=== PATIENT | male | born 1975 | race Caucasian/White ===

== ENCOUNTER 2023-07-03 11:56 | Inpatient (IN) ==
[2023-07-03] MEDS ORDERED: FAMOTIDINE 20 MG in SYRINGE 3 ML IV STA (13:02)
[2023-07-03] MEDS ORDERED: diphenhydrAMINE 50 MG/ML VIAL IV STA (13:02)
[2023-07-03] MEDS ORDERED: methylPREDNISolone 125 MG/2 ML VIAL IV STA (13:02)
[2023-07-03] MEDS ORDERED: FAMOTIDINE 20MG IV PUSH 20 MG/5 ML SYR IV STA (13:12)
[2023-07-03] MEDS ORDERED: SODIUM CHLORIDE 0.9% 1,000 ML IV ONE (13:15)
--- NOTE | 2023-07-03 13:15 | Emergency Department Note ---
Impression & Plan Facial swelling, Angio-edema ED Provider Note NAME: JASKARAN JOYA AGE: 47 SEX: M : 1975 ARRIVES VIA: Walk-In INFORMANT: Patient ED PROVIDER(S): Monster Landers DO CHIEF COMPLAINT: facial swelling HPI: Patient is a 47-year-old male who presents to the ER for swelling of his right face. He notes that it started this morning when he woke up. He denies any headache or change in vision. No chest pain or shortness of breath. Does admit to a cough and congestion. He notes this has been present for the past week. Was placed on Augmentin and has been taking that for the past several days. Was given a dose of oral steroids as well. Denies any dental pain. No trouble breathing or swallowing. He notes he has trouble breathing when he bends his neck forward for a protracted period of time. ADDITIONAL HISTORY OBTAINED: Per HPI Chronic Medical/Social Conditions Affecting Care: Per HPI PAST MEDICAL HISTORY:See Below PAST SURGICAL HISTORY:See Below FAMILY HISTORY:See Below SOCIAL HISTORY:See Below HOME MEDICATIONS:See Below ALLERGIES:See Below VITALS:See Below PHYSICAL EXAMINATION: GENERAL: Sitting up in bed, alert, well appearing, well nourished, no distress, non-toxic EYE EXAM: normal conjunctiva. PERRL and EOM's grossly intact. OROPHARYNX: no exudate, no erythema, significant swelling of the right lower and upper lip with watery edema no involvement of the soft or hard palate. No swelling below the tongue. No tongue swelling. NECK: supple, no nuchal rigidity, no adenopathy, non-tender LUNGS: Clear to auscultation. Normal chest wall mechanics HEART: no murmurs, S1 normal and S2 normal ABDOMEN: abdomen soft, non-tender, normo-active bowel sounds, no masses, no rebound or guarding. UPPER EXTREMITIES: upper extremities are grossly normal. LOWER EXTREMITIES: No pitting edema. NEURO EXAM: Normal sensorium, cranial nerves II-XII grossly intact, normal speech, no gross weakness of arms, no gross weakness of legs. MEDICAL DECISION MAKING: Patient is a 47-year-old male who presents ER for swelling of the right upper and right lower lip. He notes this started this morning when he woke up. Only new medication is Augmentin and he does not really take anything else. IV was established blood work is obtained. Labs show no significant leukocytosis or anemia. BMP along with LFTs bilirubin was unremarkable. Troponin was negative. Lipase negative. He was given Benadryl, Pepcid and steroids. The edema at the angle of the right mouth did improve but his left upper and lower lip started swelling. With this he has noticed trouble breathing or swallowing. Did discuss with him and his /family member who are present at bedside. With it switching to the left side to discuss with the hospitalist for observation overnight. Consults/Care Managements Discussions: Per MDM Triage Nursing notes reviewed. Limited review of prior medical records performed Vital Signs: reviewed and remarkable for HTN Differential diagnosis: Cellulitis, abscess, MRSA infection, DVT, necrotizing fasciitis, dermatitis, drug eruption, allergic reaction, as well as other pathologies. ER treatment provided: See below Diagnostics interpreted by me include EKG and cardiac monitoring as listed below: -Cardiac Monitoring: An order was placed for continuous cardiac monitoring. The monitor shows a rate of 80 with sinus rhythm. -ECG: none -Laboratory studies:Interpreted by me as stated above in MDM and shown below. Imaging studies: Xrays: As interpreted by me: Portable AP upright 1 view of the chest shows no focal infiltrate CTs show: CT soft tissue of the neck was unremarkable with the exception Procedures:none Critical Care: None Past Med/Surg History Medical History (Updated 07/03/23 @ 16:25 by Monster Landers DO) No pertinent past medical history Social History Smoking Status: Never smoker Preferred Language: Kazakh Feels Safe at Home: Yes Allergies Allergies Allergy/AdvReac Type Severity Reaction Status Date / Time No Known Allergies Allergy Mild Unverified 07/03/23 15:55 Home Meds Home Medications Medication Instructions Recorded Confirmed Super Beet 1 cap PO QAM 07/03/23 07/03/23 amoxicillin 875 mg-potassium 1 tab PO Q12H 07/03/23 07/03/23 clavulanate 125 mg tablet Results & Data (ED) Vital Signs Vital Signs - 24 hr 07/03/23 12:30 07/03/23 12:55 07/03/23 13:35 Temperature 36.8 C Temperature Source Temporal Artery Scan Pulse Rate 93 H 75 Pulse Rate [Right Finger] 77 Pulse Rhythm Regular Respiratory Rate 20 18 18 Respiratory Effort / Characteristics Non-Labored Spontaneous Respiratory Depth Normal Normal Respiratory Pattern Regular Blood Pressure 203/121 H Blood Pressure [Left Arm] Blood Pressure Mean 148 Blood Pressure Mean [Left Arm] Blood Pressure Position [Left Arm] Pulse Oximetry 95 96 99 Oxygen Delivery Method Room Air Room Air Room Air Sepsis New/Unexplained Change in Mental Status N/A Sepsis Action Taken by Nursing No Action Required 07/03/23 13:36 07/03/23 15:00 Temperature Temperature Source Pulse Rate Pulse Rate [Right Finger] 76 Pulse Rhythm Respiratory Rate 18 Respiratory Effort / Characteristics Non-Labored Respiratory Depth Normal Respiratory Pattern Blood Pressure Blood Pressure [Left Arm] 189/120 H 189/112 H Blood Pressure Mean Blood Pressure Mean [Left Arm] 143 137 Blood Pressure Position [Left Arm] Sitting Lying Pulse Oximetry 96 Oxygen Delivery Method Room Air Sepsis New/Unexplained Change in Mental Status Sepsis Action Taken by Nursing Laboratory Data 07/03/23 12:52 07/03/23 12:52 Lab Results 07/03/23 Range/Units 12:52 WBC 10.16 (4.8-10.8) K/ul RBC 5.37 (4.70-6.10) M/uL Hgb 15.4 (14.0-18.0) g/dl Hct 44.2 (42.0-52.0) % MCV 82.3 (80.0-100.0) fL MCH 28.7 (25.0-34.0) pg MCHC 34.8 (32.0-36.0) g/dL RDW Std Deviation 36.5 (36.4-46.3) fL RDW Coeff of Howard 12.1 (11.5-14.5) % Plt Count 298 (130-400) K/uL MPV 9.9 (9.4-12.4) fL Immature Gran % (Auto) 0.5 % Neut % (Auto) 78.3 % Lymph % (Auto) 11.3 % [place] % (Auto) 7.8 % Eos % (Auto) 1.8 % Baso % (Auto) 0.3 % Neut # (Auto) 7.96 H (1.40-6.50) K/uL Lymph # (Auto) 1.15 L (1.20-3.40) K/uL [place] # (Auto) 0.79 H (0.11-0.59) K/uL Eos # (Auto) 0.18 (0.00-0.50) K/uL Baso # (Auto) 0.03 (0.00-0.20) K/uL Immature Gran # (Auto) 0.05 (0.01-0.20) K/uL Sodium 137 (136-145) mmol/L Potassium 3.9 (3.5-5.1) mmol/L Chloride 101 (98-107) mmol/L Carbon Dioxide 28 (21-32) mmol/L Anion Gap 8 (3-11) BUN 19 (6-23) mg/dl Creatinine 1.01 (0.6-1.4) mg/dl Est Cr Clr Drug Dosing 97.3 ml/min Est GFR ( Amer) 102.9 ml/min Est GFR (Non-Af Amer) 88.8 ml/min BUN/Creatinine Ratio 18.8 (10-20) Glucose 97 (70-99(Fasting)) mg/dl Calcium 9.7 (8.6-10.3) mg/dl Total Bilirubin 0.8 (0.2-1.0) mg/dl AST 14 (13-39) U/L ALT 15 (7-52) U/L Alkaline Phosphatase 78 (34-104) U/L Troponin I High Sens 10.4 (0-20) pg/ml Total Protein 7.8 (6.0-8.3) gm/dl Albumin 4.3 (3.4-5.0) gm/dl Globulin 3.5 (2.5-4.0) gm/dl Albumin/Globulin Ratio 1.2 (0.9-2) Lipase 6 L (11-82) U/L Administered Medications Discontinued Medications Diphenhydramine HCl (Diphenhydramine 50 Mg/Ml Vial) 50 mg IV NOW STA Stop: 07/03/23 13:03 Last Admin: 07/03/23 13:22 Dose: 50 mg Documented By: KAIA Famotidine (Pepcid 20mg Iv Push) 20 mg in 5 mls @ 2.5 mls/min IV NOW STA Stop: 07/03/23 13:13 Last Admin: 07/03/23 13:22 Dose: 2.5 mls/min Documented By: KAIA Sodium Chloride (Nss) 1,000 mls @ 999 mls/hr IV .Q1H1M ONE Stop: 07/03/23 14:15 Last Infusion: 07/03/23 15:15 Dose: Infused Documented By: Admin: 07/03/23 13:23 Dose: 999 mls/hr Documented By: KAIA Ioversol (Optiray 320 500ml) 81 ml IV ONCE ONE Stop: 07/03/23 14:11 Last Admin: 07/03/23 14:10 Dose: 81 ml Documented By: FLY Methylprednisolone (Methylprednisolone 125 Mg/2 Ml Vial) 125 mg IV NOW STA Stop: 07/03/23 13:03 Last Admin: 07/03/23 13:22 Dose: 125 mg Documented By: KAIA Imaging Data Radiologist's Impression: Chest X-Ray 07/03/23 13:02 XR chest 1V portable CLINICAL HISTORY: Chest pain, nonspecific TECHNIQUE: Single frontal radiograph of the chest was obtained. Comparison: None available at the time of this dictation. FINDINGS: No lines and tubes are seen. The lungs are clear. No evidence of pleural effusion or pneumothorax. IMPRESSION: No acute chest disease. ACT 112: Negative or not required by law. Electronically signed by: Bill Miller M.D. 07/03/2023 1:24 PM Soft Tissue Neck CT 07/03/23 13:15 CT soft tissue neck w con HISTORY: 47 years-old Male swelling lips and pain on right neck acute pain and swelling of the neck and face COMPARISON: None TECHNIQUE: Multiple axial CT images of the soft tissues of the neck were obtained following intravenous ministration of 81 mL Optiray 320. A dose lowering technique was used consistent with the principals of ALARA. FINDINGS: The imaged intracranial structures demonstrate no acute abnormality. Unremarkable soft tissues and orbits. Patent airway with tonsillar calcifications. Vallecula and piriform sinuses are within normal limits. Unremarkable glottis and subglottic airway. Streak artifact from dental amalgam and hardware. No peritonsillar or prevertebral fluid collections. Mild nonspecific wall thickening of the upper thoracic esophagus. Unremarkable parotid, thyroid and submandibular glands. Lung apices are clear. There is no pneumothorax. No lymphadenopathy. Moderate subcutaneous edema of the maxillary and mandibular lips and right mandibular tissues. No focal fluid collections identified. Mastoid air cells and middle ear cavities are clear. The paranasal sinuses are generally clear. No significant odontogenic disease identified. Degenerative changes of the cervical spine. IMPRESSION: 1. Nonspecific moderate soft tissue swelling. No discrete fluid collection identified. 2. No acute osseous abnormality. 3. No lymphadenopathy. ACT 112: Negative or not required by law. The above report was generated using voice recognition software. It may contain grammatical, syntax or spelling errors. Electronically signed by: Handy Nichols M.D. 07/03/2023 3:25 PM Discharge Plan Visit Data Chief Complaint: Facial Injury/Pain Stated Complaint: SWOLLEN LIP ED Provider: Monster Landers Discharge Problem: Facial swelling, Angio-edema Forms Stand Alone Forms: [employer] [facility] [employer] Prescriptions Prescriptions: No Action amoxicillin-pot clavulanate 875-125 mg tablet 1 tab PO Q12H Rx Instructions: Start Date 07/01/23 - End Date 07/08/23. Pt has taken 5 doses. Super Beet 1 cap PO QAM Referrals Referrals: PCP,NO [Primary Care Provider] - Discharge Problem: Angio-edema Qualifiers: Encounter type: initial encounter Qualified Code(s): T78.3XXA - Angioneurotic edema, initial encounter
[2023-07-03 13:25] LABS: Basophils # (auto) 0.03 K/uL (0.00-0.20); Basophils % (auto) 0.3 %; Eosinophils # (auto) 0.18 K/uL (0.00-0.50); Eosinophils % (auto) 1.8 %; Hematocrit (blood only) 44.2 % (42.0-52.0); Hemoglobin 15.4 g/dl (14.0-18.0); Immature Granulocytes # (auto) 0.05 K/uL (0.01-0.20); Immature Granulocytes % (auto) 0.5 %; Lymphocytes # (auto) 1.15 K/uL (1.20-3.40); Lymphocytes % (auto) 11.3 %; Mean Corpuscular Hemoglobin 28.7 pg (25.0-34.0); Mean Corpuscular Hgb Conc 34.8 g/dL (32.0-36.0); Mean Corpuscular Volume 82.3 fL (80.0-100.0); Mean Platelet Volume 9.9 fL (9.4-12.4); Monocytes # (auto) 0.79 K/uL (0.11-0.59); Monocytes % (auto) 7.8 %; Neutrophils # (auto) 7.96 K/uL (1.40-6.50); Neutrophils % (auto) 78.3 %; Platelet Count 298 K/uL (130-400); RDW Coefficient of Variation 12.1 % (11.5-14.5); RDW Standard Deviation 36.5 fL (36.4-46.3); Red Blood Count 5.37 M/uL (4.70-6.10); White Blood Count 10.16 K/ul (4.8-10.8)
--- NOTE | 2023-07-03 13:26 | XRay Report ---
XR chest 1V portable CLINICAL HISTORY: Chest pain, nonspecific TECHNIQUE: Single frontal radiograph of the chest was obtained. Comparison: None available at the time of this dictation. FINDINGS: No lines and tubes are seen. The lungs are clear. No evidence of pleural effusion or pneumothorax. IMPRESSION: No acute chest disease. ACT 112: Negative or not required by law. Electronically signed by: Bill Miller M.D. 07/03/2023 1:24 PM
[2023-07-03 13:40] LABS: Albumin Globulin Ratio 1.2 (0.9-2); Albumin Level 4.3 gm/dl (3.4-5.0); BUN Creatinine Ratio 18.8 (10-20); Bilirubin,Total 0.8 mg/dl (0.2-1.0); Calcium 9.7 mg/dl (8.6-10.3); Creatinine Clr Calc Pharmacy 97.3 ml/min; Est GFR (African American) 102.9 ml/min; Est GFR (Non-African American) 88.8 ml/min; Globulin 3.5 gm/dl (2.5-4.0); Potassium 3.9 mmol/L (3.5-5.1); Total Protein 7.8 gm/dl (6.0-8.3)
[2023-07-03 13:46] LABS: Troponin I High Sensitivity 10.4 pg/ml (0-20)
[2023-07-03] MEDS ORDERED: OPTIRAY 320 500ml IV ONE (14:10)
--- NOTE | 2023-07-03 15:26 | CT Scan Report ---
CT soft tissue neck w con HISTORY: 47 years-old Male swelling lips and pain on right neck acute pain and swelling of the neck and face COMPARISON: None TECHNIQUE: Multiple axial CT images of the soft tissues of the neck were obtained following intraveno us ministration of 81 mL Optiray 320. A dose lowering technique was used consistent with the principa ls of MADELYN. FINDINGS: The imaged intracranial structures demonstrate no acute abnormality. Unremarkable soft tissues and or bits. Patent airway with tonsillar calcifications. Vallecula and piriform sinuses are within normal l imits. Unremarkable glottis and subglottic airway. Streak artifact from dental amalgam and hardware. No peritonsillar or prevertebral fluid collections. Mild nonspecific wall thickening of the upper tho racic esophagus. Unremarkable parotid, thyroid and submandibular glands. Lung apices are clear. There is no pneumothorax. No lymphadenopathy. Moderate subcutaneous edema of t he maxillary and mandibular lips and right mandibular tissues. No focal fluid collections identified. Mastoid air cells and middle ear cavities are clear. The paranasal sinuses are generally clear. No s ignificant odontogenic disease identified. Degenerative changes of the cervical spine. IMPRESSION: 1. Nonspecific moderate soft tissue swelling. No discrete fluid collection identified. 2. No acute osseous abnormality. 3. No lymphadenopathy. ACT 112: Negative or not required by law. The above report was generated using voice recognition software. It may contain grammatical, syntax o r spelling errors. Electronically signed by: Handy Nichols M.D. 07/03/2023 3:25 PM
--- NOTE | 2023-07-03 16:16 | Electrocardiogram Report ---
Test Reason : Blood Pressure : / mmHG Vent. Rate : 069 BPM Atrial Rate : 069 BPM P-R Int : 178 ms QRS Dur : 096 ms QT Int : 402 ms P-R-T Axes : 063 058 045 degrees QTc Int : 430 ms Normal sinus rhythm Minimal voltage criteria for LVH, may be normal variant Borderline ECG When compared with ECG of 16-APR-2021 11:35, No significant change was found Confirmed by Ralph Banegas ([id number]) on 07/03/2023 4:16:27 PM Referred By: REFERRED SELF Confirmed By:Thaddeus Banegas
[2023-07-03] MEDS ORDERED: hydrALAZINE HCL 20 MG/ML VIAL IV STA ×2 (16:20→22:41)
--- NOTE | 2023-07-03 16:50 | History & Physical Report ---
Date of Service July 03, 2023 Assessment & Plan (1) Angio-edema: Plan: This is a 47 y/o male with no significant PMH who presents to the ED today with right facial swelling that started this morning. He is currently on Augmentin for chest congestion, which he started two days ago after being seen at [facility]. He reports taking amoxicillin/pencillins previously without issue. Work-up in the ED appears most consistent with angioedema although source is u ncertain. Per pt, respiratory symptoms have not improved with the Augmentin. Only mild improvement in the right facial edema after Solu- Medrol/Benadryl/famotidine given in the ED and lip swelling now present bilaterally so pt referred for admission and further management. Pt's BP in the ED also markedly elevated. Review of outpatient records shows ongoing elevated BP for which pt is not currently on any anti-hypertensives. - Admit to med telemetry - IV hydralazine 10 mg now and reassess. Start losartan 50 mg daily - first dose now. Will need to f/u with PCP for management of hypertension outpatient - suspect pt will need more than one agent. - Prednisone 40 mg daily starting tomorrow - IV Benadryl prn for worsening symptoms overnight - Cetirizine 10 mg po BID - Recommend pt avoid penicillins/amoxicillin until he can be evaluated by travel accommodation inspector as outpatient - Check tryptase, C4 though hereditary angioedema seems unlikely - Add levofloxacin for lower respiratory infection. Check respiratory panel. (2) Lower respiratory infection: (3) Hypertensive urgency: Plan Pt seen and reviewed with collaborating physician, Dr. Allison. Plan of care discussed and as outlined above. Code Status: Full code DVT prophylaxis: Kvng Fan PA-C History of Present Illness Chief Complaint: facial swelling Primary Care Provider: NO PCP This is a 47 y/o male with no significant PMH who presents to the ED today with right facial swelling that started this morning. Pt reports that when he woke up this morning he noted the right side of his upper lip and the area immediately surrounding it were swollen. The swelling continued to worsen until it involved most of the right face so he came to the ED for evaluation. Pt notes recent chest cold for which he was seen at [facility] two days ago and started on Augment, given a dose of liquid steroid orally. His cough and chest congestion have not significantly improved or worsened since starting those medications. His throat has been sore due to coughing - he denies dysphagia or throat itching today. In the ED, he was given Solu-Medrol, famotidine, and Benadryl. He noted some mild improvement in the right facial swelling but now left side of lips are swollen so he was referred for admission. He denies prior similar reactions previously. He thinks that he has taken amoxicillin/penicillin without issues previously. His BP in the ED was markedly elevated - on review of outpatient PCP records, his BPs have been elevated since at least 2019. Pt has been taking a supplement to help treat this but has not taken anti-hypertensive medications. Allergies Allergy/AdvReac Type Severity Reaction Status Date / Time amoxicillin Allergy Severe angioedema Verified 07/03/23 17:16 Home Medications Medication Instructions Recorded Confirmed Type Super Beet 1 cap PO QAM 07/03/23 07/03/23 History amoxicillin 875 mg-potassium 1 tab PO Q12H 07/03/23 07/03/23 History clavulanate 125 mg tablet Past Med/Surg History Medical History (Updated 07/03/23 @ 20:42 by Elle Fan PA-C) No pertinent past medical history Surgical History (Updated 07/03/23 @ 16:55 by Elle Fan PA-C) No pertinent past surgical history Social History (Updated 07/03/23 @ 16:56 by Elle Fan PA-C) Smoking Status: Never smoker Hx Alcohol Use: Yes Alcohol Intake Frequency: Monthly or Less Preferred Language: Kiswahili Current Living Situation: Family current occupational status: employed 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 How many Children do You have: 2 Feels Safe at Home: Yes Review of Systems Review of Systems: All systems reviewed & are unremarkable except as noted in HPI & below Constitutional: + fever, + chills and + fatigue Eyes: no diplopia Ear, Nose, Mouth, Throat: as per Subjective / HPI Respiratory: as per Subjective / HPI Cardiovascular: no chest pain, no palpitations and no syncope Gastrointestinal: no abdominal pain, no nausea and no vomiting Integumentary: no yellowing of the skin Neurologic: no generalized weakness, no headache(s) and no confusion Physical Exam Physical Exam: General: awake, alert, NAD Eyes: no scleral icterus Mouth: multiple dental caries but no gingival erythema or purulence, no tongue swelling, +marked edema of upper and lower lips bilaterally Face: +right facial edema but no overlying erythema or fluctuance Neck: trachea midline Heart: RRR, no M/G/R Lungs: bilateral coarse BS with expiratory rhonchi at bases Abdomen: soft, NT, +BS Extremities: no pedal edema Neurologic: moving all extremities, no dysarthria, no confusion Results & Data Results & Data Vital Signs (Past 12 Hours) Vital Signs Temp Pulse Pulse Resp BP BP Pulse Ox 07/03/23 16:31 99 H 07/03/23 15:00 76 18 189/112 H 96 07/03/23 13:36 189/120 H 07/03/23 13:35 75 18 99 07/03/23 12:55 77 18 96 07/03/23 12:30 36.8 C 93 H 20 203/121 H 95 O2 Del Method 07/03/23 16:31 07/03/23 15:00 Room Air 07/03/23 13:36 07/03/23 13:35 Room Air 07/03/23 12:55 Room Air 07/03/23 12:30 Room Air Laboratory Results Laboratory Results - last 24 hr 07/03/23 07/03/23 12:52 17:46 WBC 10.16 RBC 5.37 Hgb 15.4 Hct 44.2 MCV 82.3 MCH 28.7 MCHC 34.8 RDW Std Deviation 36.5 RDW Coeff of Howard 12.1 Plt Count 298 MPV 9.9 Immature Gran % (Auto) 0.5 Neut % (Auto) 78.3 Lymph % (Auto) 11.3 Grand % (Auto) 7.8 Eos % (Auto) 1.8 Baso % (Auto) 0.3 Neut # (Auto) 7.96 H Lymph # (Auto) 1.15 L Grand # (Auto) 0.79 H Eos # (Auto) 0.18 Baso # (Auto) 0.03 Immature Gran # (Auto) 0.05 Sodium 137 Potassium 3.9 Chloride 101 Carbon Dioxide 28 Anion Gap 8 BUN 19 Creatinine 1.01 Est Cr Clr Drug Dosing 97.3 Est GFR ( Amer) 102.9 Est GFR (Non-Af Amer) 88.8 BUN/Creatinine Ratio 18.8 Glucose 97 Calcium 9.7 Total Bilirubin 0.8 AST 14 ALT 15 Alkaline Phosphatase 78 Troponin I High Sens 10.4 Total Protein 7.8 Albumin 4.3 Globulin 3.5 Albumin/Globulin Ratio 1.2 Lipase 6 L Tryptase Pending Complement C4 Pending Diagnostic Findings Chest X-Ray 07/03/23 13:02 XR chest 1V portable CLINICAL HISTORY: Chest pain, nonspecific TECHNIQUE: Single frontal radiograph of the chest was obtained. Comparison: None available at the time of this dictation. FINDINGS: No lines and tubes are seen. The lungs are clear. No evidence of pleural effusion or pneumothorax. IMPRESSION: No acute chest disease. ACT 112: Negative or not required by law. Electronically signed by: Bill Miller M.D. 07/03/2023 1:24 PM Soft Tissue Neck CT 07/03/23 13:15 CT soft tissue neck w con HISTORY: 47 years-old Male swelling lips and pain on right neck acute pain and swelling of the neck and face COMPARISON: None TECHNIQUE: Multiple axial CT images of the soft tissues of the neck were obtain ed following intravenous ministration of 81 mL Optiray 320. A dose lowering technique was used consistent with the principals of ALARA. FINDINGS: The imaged intracranial structures demonstrate no acute abnormality. Unremarkable soft tissues and orbits. Patent airway with tonsillar calcifications. Vallecula and piriform sinuses are within normal limits. Unremarkable glottis and subglottic airway. Streak artifact from dental amalgam and hardware. No peritonsillar or prevertebral fluid collections. Mild nonspecific wall thickening of the upper thoracic esophagus. Unremarkable parotid, thyroid and submandibular glands. Lung apices are clear. There is no pneumothorax. No lymphadenopathy. Moderate subcutaneous edema of the maxillary and mandibular lips and right mandibular tissues. No focal fluid collections identified. Mastoid air cells and middle ear cavities are clear. The paranasal sinuses are generally clear. No significant odontogenic disease identified. Degenerative changes of the cervical spine. IMPRESSION: 1. Nonspecific moderate soft tissue swelling. No discrete fluid collection identified. 2. No acute osseous abnormality. 3. No lymphadenopathy. ACT 112: Negative or not required by law. The above report was generated using voice recognition software. It may contain grammatical, syntax or spelling errors. Electronically signed by: Handy Nichols M.D. 07/03/2023 3:25 PM Medications Administered Discontinued Medications Diphenhydramine HCl (Diphenhydramine 50 Mg/Ml Vial) 50 mg IV NOW STA Stop: 07/03/23 13:03 Last Admin: 07/03/23 13:22 Dose: 50 mg Documented By: KAIA Famotidine (Pepcid 20mg Iv Push) 20 mg in 5 mls @ 2.5 mls/min IV NOW STA Stop: 07/03/23 13:13 Last Admin: 07/03/23 13:22 Dose: 2.5 mls/min Documented By: KAIA Sodium Chloride (Nss) 1,000 mls @ 999 mls/hr IV .Q1H1M ONE Stop: 07/03/23 14:15 Last Infusion: 07/03/23 15:15 Dose: Infused Documented By: Admin: 07/03/23 13:23 Dose: 999 mls/hr Documented By: KAIA Ioversol (Optiray 320 500ml) 81 ml IV ONCE ONE Stop: 07/03/23 14:11 Last Admin: 07/03/23 14:10 Dose: 81 ml Documented By: FLY Methylprednisolone (Methylprednisolone 125 Mg/2 Ml Vial) 125 mg IV NOW STA Stop: 07/03/23 13:03 Last Admin: 07/03/23 13:22 Dose: 125 mg Documented By: KAIA Supervising Physician Co-Signing Physician Notes I have seen and examined the patient and have discussed the case with the provider above. I agree with the assessment and plan as stated with the following exceptions. 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 Swelling is located in his lip but does not include his tongue. It has spread over to the left side somewhat. He was recently put on Augmentin for respiratory symptoms that he reports have not improved. He has no wheezing on exam but does have coarse rhonchi especially at the left base. He is still having a productive cough and is mildly diaphoretic on exam today. Today he has no dysphagia or throat itching. His initial symptoms began approximately 1 week ago and he was seen at urgent care. He reports that prior to taking Augmentin he did bite his tongue and had some tongue swelling which has resolved. He has no known allergy to penicillin. He takes super beet supplements for blood pressure control and has taken this for the last year. His blood pressure is critically elevated today in the ER up to 203/121. He reports this blood pressure has been elevated for years and he has a family history of this. Labs and imaging reviewed and unremarkable. No leukocytosis or eosinophilia. Chem panel and troponin are normal. CXR clear. 1. angioedema poss 2/2 amoxicillin use 2. hypertensive urgency with long-standing uncontrolled HTN 3. possible pneumonia We discussed in detail the importance of chronic management of blood pressure and the adverse effects of not controlling blood pressure well. We discussed what his goal blood pressure is and how to reduce salt intake to achieve this goal naturally. He was placed on losartan 50 daily and acutely given hydralazine IV for blood pressure reduction. He does report significant anxiety with staying in the hospital and reports whitecoat syndrome. Ativan was also ordered as needed. Given he has adventitial sounds on exam along with intermittent diaphoresis, productive cough, intermittent fevers and chills, it is possible that he has pneumonia despite a clear chest x-ray. He is a non- smoker. Will start him on a course of Levaquin. Continue prednisone daily along with cetirizine daily for angioedema. Tryptase and C4 level was drawn. Patient was counseled on the side effects of fluoroquinolones and steroids together including tendinitis and tendon rupture. He verbalized understanding that if he were to feel tendon pain he will stop working rest and seek medical attention to potentially come off these medications. QTc is 430 on EKG today. Outpatient allergy follow-up recommended. He was given Dr. Wiley's name. Close follow-up with primary care doctor was strongly recommended for blood pressure medication titration as well as follow-up of pulmonary symptoms. Disposition to telemetry with ongoing hypertensive urgency and angioedema that has not yet resolved. Avoid all penicillin products at this time until he is seen by an travel accommodation inspector. DO Keegan (1) Angio-edema Encounter type: initial encounter Qualified Code(s): T78.3XXA - Angioneurotic edema, initial encounter
[2023-07-03] MEDS ORDERED: LORazepam 0.5 MG TAB PO PRN (17:06)
[2023-07-03] MEDS ORDERED: diphenhydrAMINE 50 MG/ML VIAL IV PRN (17:13)
[2023-07-03] MEDS: levoFLOXacin/D5W 750 MG/150 ML BAG IV SCH (17:21)
[2023-07-03] MEDS: LOSARTAN POTASSIUM 50 MG TAB PO SCH (17:22)
--- OUTSIDE RECORDS SUMMARY | 2023-07-03 18:52 | External Medical Summary | Summary of Care ---
Author Name Unknown Organization [facility] Address [address] [place] [address] Phone [phone] Care Team Providers Care Technical Administrative Assistant Name Role Phone Piper Cevallos DO Primary Care Provider Reason for Visit * Reason Comments NEW PATIENT Encounter Details Date Type Department Care Team Description 03/18/2023 Office Visit Family Practice Carolynn Krishnan [place] [address] [facility] [place] [place] [id number] Arias Ricci III, MD [address] [facility] [place] [id number] Bilateral impacted cerumen*; Elevated blood pressure reading Allergies No known active allergiesdocumented as of this encounter (statuses as of 03/21/2023) Medications Medication Sig Dispensed Refills Start Date End Date Status Hydrocortisone-Acetic Acid 1-2 % Otic Solution (Vosol HC) Instill 4 Drops into both ears in the morning and 4 Drops at noon and 4 Drops in the evening and 4 Drops before bedtime. Do all this for 7 days. 5 mL 1 03/18/2023 03/25/2023 Active documented as of this encounter (statuses as of 03/21/2023) Active Problems No known active problems documented as of this encounter (statuses as of 03/21/2023) Resolved Problems Problem Noted Date Resolved Date Varicella 08/02/2018 documented as of this encounter (statuses as of 03/21/2023) Immunizations Name Administration Dates Next Due TDAP (age 11 and older)(Adacel) 11/04/2011 documented as of this encounter Social History Tobacco Use Types Packs/Day Years Used Date Smoking Tobacco: Never Smokeless Tobacco: Never Tobacco Cessation:Counseling Given: Not Answered Alcohol Use Standard Drinks/Week Comments No 0 (1 standard drink = 0.6 oz pur e alcohol) social Sex Assigned at Date Recorded Not on file Job Start Date Occupation Industry Not on file Not on file Not on file documented as of this encounter Last Filed Vital Signs Vital Sign Reading Time Taken Comments Blood Pressure 174/106 03/18/2023 1:58 PM EDT Pulse 83 03/18/2023 1:58 PM EDT Temperature 37.2 C (99 F) 03/18/2023 1:58 PM EDT Respiratory Rate 16 03/18/2023 1:58 PM EDT Oxygen Saturation - - Inhaled Oxygen Concentration - - Weight 79.4 kg (175 lb) 03/18/2023 1:58 PM EDT Height 180.3 cm (5' 11") 03/18/2023 1:58 PM EDT Body Mass Index 24.41 03/18/2023 1:58 PM EDT documented in this encounter Progress Notes * Arias Ricci III, MD - 03/18/2023 2:28 PM EDT Subjective: Dale Cueva is a 47 year old male. Chief Complaint Patient presents with NEW PATIENT HPI: Both ears feel plugged worse on the left than the right decreased hearing on the left reportedly blood pressure is always elevated in the doctor's office was trying a red beet pill with some benefit is not interested in taking prescriptions PMH: Patient Active Problem List Diagnosis Code (none) - all problems resolved or deleted No current outpatient medications on file. No current facility-administered medications for this visit. Review of patient's allergies indicates: No Known Allergies Past Medical History: Diagnosis Date Varicella Past Surgical History: Procedure Laterality Date DENTAL SURGERY PROCEDURE NEC 1999 Objective: The patient is a 47 year old male BP 174/106 | Pulse 83 | Temp 37.2 C (99 F) | Resp 16 | Ht 1.803 m (5' 11") | Wt 79.4 kg (175 lb) | BMI 24.41 kg/m | BSA 1.99 m Ears: External ears normal, some cerumen right able to visualize part of drum left completely blocked ASSESSMENT: H61.23 Bilateral impacted cerumen (primary encounter diagnosis) R03.0 Elevated blood pressure reading PLAN: Dash diet case 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 Arias Ricci III, MD * Nisa Escoto RN - 03/18/2023 1:55 PM EDT Both ears are plugged. documented in this encounter Plan of Treatment Health Maintenance Due Date Last Done Comments Hepatitis B (1 of 3 - 3-dose series) 1976 COVID-19 Vaccine (#1) 03/17/1977 HIV Screening 09/15/1991 Hepatitis C Screening 1994 Depression Screening 08/02/2019 08/02/2018 Cologuard 2021 Colonoscopy 2021 Colorectal Cancer Screening 2021 Fecal Occult Blood Test 2021 Sigmoidoscopy 2021 DTaP,Tdap,and Td Vaccines (2 - Td or Tdap) 11/03/2021 11/04/2011 Influenza Vaccine (FLU shot) (#1) 2023 Lipid Panel 08/02/2023 08/02/2018, 12/04/2011 (Discussed) GARDASIL-HPV IMMUNIZATION SERIES Aged Out No longer eligible b ased on patient's age to complete this topic MENINGOCOCCAL (MENACTRA/MENVEO) Aged Out No longer eligible b ased on patient's age to complete this topic Pneumococcal Vaccine: Pediatrics (0 to 5 Years) and At-Risk Patients (6 to 64 Years) Aged Out No longer eligible b ased on patient's age to complete this topic documented as of this encounter Medical Devices Not on filedocumented as of this encounter Visit Diagnoses Diagnosis Bilateral impacted cerumen- Primary Impacted cerumen Elevated blood pressure reading Elevated blood pressure reading without diagnosis of hypertension documented in this encounter Care Teams Technical Administrative Assistant Relationship Specialty Start Date End Date Piper Cevallos DO PCP - General Family Medicine 04/07/11 documented as of this encounter
[2023-07-03] MEDS: guaiFENesin 600 MG TABCR PO SCH (21:45)
[2023-07-03] MEDS: CETIRIZINE HCL 10 MG TABLET PO SCH (21:45)
[2023-07-03 23:29] LABS: Influenza A virus by PCR Negative (Neg); Influenza B virus by PCR Negative (Neg); RSV by PCR Negative (Neg); SARS CoV2 RNA(COVID-19) Ceph NEGATIVE (Negative)
[2023-07-04] MEDS ORDERED: cloNIDine HCL 0.1 MG TAB PO ONE (00:53)
[2023-07-04] MEDS: CETIRIZINE HCL 10 MG TABLET PO SCH ×2 (08:08→21:15)
[2023-07-04] MEDS: LOSARTAN POTASSIUM 50 MG TAB PO SCH (08:08)
[2023-07-04] MEDS: predniSONE 20 MG TAB PO SCH (08:08)
[2023-07-04] MEDS: guaiFENesin 600 MG TABCR PO SCH ×2 (08:12→21:15)
--- NOTE | 2023-07-04 14:57 | Hospitalist Progress Note ---
Date of Service July 04, 2023 Assessment & Plan (1) Angio-edema: Plan 47-year-old male with no significant PMH presented to the ED with right facial swelling that started on the morning of arrival which was gradually progressing. He was recently started on Augmentin for chest congestion at urgent care. He reported taking 3 doses of Augmentin INTERNAL CARVER. He also reports taking amoxicillin/penicillins in the past with no issues. He was noted to be in angioedema, progressing at presentation. Patient was given Solu- Medrol/Benadryl/famotidine in the ED, swelling continued to involve his lips while in ED and hence was admitted for further observation and management. Patient was also noted to have high blood pressure in the ED. He is being managed for the following: Angioedema possibly secondary to amoxicillin use Patient came in with right facial swelling with recent history of amoxicillin use [see above] Patient was given Solu-Medrol/Benadryl/famotidine in the ED , the swelling continued to progress to involve his lips. At bedside exam today, the swelling seems decreasing per patient. Patient denies any wheezing or chest pain or abdominal pain or shortness of breath. Will continue with cetirizine and prednisone at the time. Continue to observe. Tryptase and C4 level sent. Patient has been advised to avoid penicillin/amoxicillin until he can be evaluated by sports reporter as an outpatient. Patient is aware that he needs to see sports reporter upon discharge as soon as possible. Will likely discharge patient with EpiPen. Possible pneumonia: Patient was taking amoxicillin for chest congestion as an outpatient, will put him on levofloxacin and complete the course. Hypertensive urgency: Patient blood pressure elevated at presentation. Was started on losartan, given angioedema presentation, will avoid losartan for the time being. Will put him on amlodipine. Will not restart multiple medication at the same time. Will monitor for any allergic reaction from a new medication for few weeks before adding another medication. Patient has been explained such. Patient advised to monitor blood pressure twice a day, maintain a log, follow-up with PCP for ongoing/further management of his blood pressure. He is aware that he needs addition of further BP meds in near future. He is aware to f/u w/ pcp regarding this. DVT prophylaxis: SCDs Full code Admission and Anticipated Discharge Date Admission Date: July 03, 2023 Subjective Patient was seen and examined at bedside. Patient was lying in bed, lips and facial swelling noted. Patient on room air, resting comfortably. Patient denies any abdominal pain or wheezing, patient denies shortness of breath. Patient's at bedside, who reports improvement in his facial swelling. Patient denies any trouble swallowing food. Physical Exam 2 Physical Exam: GENERAL: Alert and oriented x3. NAD, on RA. facial swelling/lips swelling noted. HEENT: No pallor, no icterus. Pupils equal, round and reactive to light. Oral mucosa moist. NECK: No JVD, no neck masses. HEART: S1 and S2 heard. Regular rate and rhythm. No murmur, no gallop. RESPIRATORY SYSTEM: Normal AP diameter. No accessory muscle use. No wheezing, no crackles. ABDOMEN: Soft, bowel sounds present, nontender, no distention. CENTRAL NERVOUS SYSTEM: No facial droop. Speech is clear. Obeys simple commands. Moves extremities. EXTREMITIES: No edema, no erythema seen. Results & Data Results & Data Vital Signs (Past 12 Hours) Vital Signs Temp Pulse Pulse Resp BP Pulse Ox Pulse Ox 07/04/23 12:00 36.7 C 69 14 159/90 H 95 07/04/23 08:00 95 07/04/23 07:58 36.8 C 70 16 153/89 H 95 07/04/23 07:39 68 07/04/23 04:24 62 16 149/86 H 95 O2 Del Method O2 Del Method 07/04/23 12:00 Room Air 07/04/23 08:00 Room Air 07/04/23 07:58 Room Air 07/04/23 07:39 07/04/23 04:24 Room Air (1) Angio-edema Encounter type: initial encounter Qualified Code(s): T78.3XXA - Angioneurotic edema, initial encounter
[2023-07-04] MEDS: levoFLOXacin/D5W 750 MG/150 ML BAG IV SCH (17:08)
[2023-07-05 08:02] LABS: Hematocrit (blood only) 44.6 % (42.0-52.0); Hemoglobin 15.4 g/dl (14.0-18.0); Mean Corpuscular Hemoglobin 28.7 pg (25.0-34.0); Mean Corpuscular Hgb Conc 34.5 g/dL (32.0-36.0); Mean Corpuscular Volume 83.2 fL (80.0-100.0); Mean Platelet Volume 9.8 fL (9.4-12.4); Platelet Count 331 K/uL (130-400); RDW Coefficient of Variation 12.2 % (11.5-14.5); RDW Standard Deviation 37.4 fL (36.4-46.3); Red Blood Count 5.36 M/uL (4.70-6.10)
[2023-07-05 08:06] LABS: BUN Creatinine Ratio 25.2 (10-20); Calcium 8.9 mg/dl (8.6-10.3); Creatinine Clr Calc Pharmacy 91.9 ml/min; Est GFR (Non-African American) 82.8 ml/min; Magnesium 2.3 mg/dl (1.7-2.4); Phosphorus 2.9 mg/dl (2.5-4.9); Potassium 3.5 mmol/L (3.5-5.1)
[2023-07-05] MEDS: guaiFENesin 600 MG TABCR PO SCH (08:49)
[2023-07-05] MEDS: CETIRIZINE HCL 10 MG TABLET PO SCH (08:49)
[2023-07-05] MEDS: predniSONE 20 MG TAB PO SCH ×2 (08:50→11:49)
[2023-07-05] MEDS ORDERED: amLODIPine BESYLATE 5 MG TAB PO SCH (09:00)
--- NOTE | 2023-07-05 12:24 | Discharge Summary ---
Date of Service July 05, 2023 Admission HPI Per Admitting Provider This is a 47 y/o male with no significant PMH who presents to the ED today with right facial swelling that started this morning. Pt reports that when he woke up this morning he noted the right side of his upper lip and the area immediately surrounding it were swollen. The swelling continued to worsen until it involved most of the right face so he came to the ED for evaluation. Pt notes recent chest cold for which he was seen at [facility] two days ago and started on Augment, given a dose of liquid steroid orally. His cough and chest congestion have not significantly improved or worsened since starting those medications. His throat has been sore due to coughing - he denies dysphagia or throat itching today. In the ED, he was given Solu-Medrol, famotidine, and Benadryl. He noted some mild improvement in the right facial swelling but now left side of lips are swollen so he was referred for admission. He denies prior similar reactions previously. He thinks that he has taken amoxicillin/penicillin without issues previously. His BP in the ED was markedly elevated - on review of outpatient PCP records, his BPs have been elevated since at least 2019. Pt has been taking a supplement to help treat this but has not taken anti-hypertensive medications. Principal Diagnosis Angioedema possibly secondary to amoxicillin use Possible pneumonia Hypertensive urgency Discharge Exam GENERAL: Alert and oriented x3. NAD, on RA. facial swelling/lips swelling noted. HEENT: No pallor, no icterus. Pupils equal, round and reactive to light. Oral mucosa moist. NECK: No JVD, no neck masses. HEART: S1 and S2 heard. Regular rate and rhythm. No murmur, no gallop. RESPIRATORY SYSTEM: Normal AP diameter. No accessory muscle use. No wheezing, no crackles. ABDOMEN: Soft, bowel sounds present, nontender, no distention. CENTRAL NERVOUS SYSTEM: No facial droop. Speech is clear. Obeys simple commands. Moves extremities. EXTREMITIES: No edema, no erythema seen. Discharge Data Allergies Allergy/AdvReac Type Severity Reaction Status Date / Time amoxicillin Allergy Severe angioedema Verified 07/03/23 17:16 Consultations 07/03/23 15:42 ED Decision to Admit Stat Ordered Studies 07/03/23 13:15 CT soft tissue neck w con Stat Hospital Course (1) Angio-edema: Plan 47-year-old male with no significant PMH presented to the ED with right facial swelling that started on the morning of arrival which was gradually progressing. He was recently started on Augmentin for chest congestion at urgent care. He reported taking 3 doses of Augmentin LACQUER COATER. He also reports taking amoxicillin/penicillins in the past with no issues. He was noted to be in angioedema, progressing at presentation. Patient was given Solu- Medrol/Benadryl/famotidine in the ED, swelling continued to involve his lips while in ED and hence was admitted for further observation and management. Patient was also noted to have high blood pressure in the ED. He was managed for the following: Angioedema possibly secondary to amoxicillin use Patient came in with right facial swelling with recent history of amoxicillin use [see above] Patient was given Solu-Medrol/Benadryl/famotidine in the ED , the swelling con tinued to progress to involve his lips which is concerning as it might have involved his airway if not for timely medications. At bedside exam today, the swelling seems almost back to normal Patient denies any wheezing or chest pain or abdominal pain or shortness of breath. Will continue with famotidine, cetirizine and prednisone at the time upon discharge for few days. Tryptase and C4 level sent. Patient has been advised to avoid penicillin/amoxicillin until he can be evaluated by powerhouse engineer as an outpatient. Patient is aware that he needs to see powerhouse engineer upon discharge as soon as possible. Will likely discharge patient with EpiPen. Pt didn't take his steroid in AM, pt advised to maintain compliance and explained pathophysiology why steroid is needed. Possible pneumonia: Patient was taking amoxicillin for chest congestion as an outpatient, will put him on levofloxacin and complete the course upon DC. Hypertensive urgency: Patient blood pressure elevated at presentation. Started on amlodipine. Will not restart multiple medication at the same time. Will monitor for any allergic reaction from a new medication for few weeks before adding another medication. Patient has been explained such. Patient advised to monitor blood pressure twice a day, maintain a log, follow-up with PCP for ongoing/further management of his blood pressure. He is aware that he needs addition of further BP meds in near future. He is aware to f/u w/ pcp regarding this. He states he gets anxious in hospital and it might also cause his BP to go up while in hospital. DVT prophylaxis: SCDs Full code Following instructions were communicated with the patient and his at bedside. Patient is being discharged home with following instruction at the point of discharge: Follow-up with your primary care physician within a week time and likely you will need labs CBC/CMP/magnesium/phosphorus. For your hypertension, you are started on amlodipine. As discussed at bedside, continue to measure your blood pressure at home twice a day, maintain a log to take to your primary care physician in a week time for further evaluation/management of your blood pressure medications. For your possible pneumonia, you will be discharged on antibiotic to complete the course. Take them as prescribed. For your face/lip swelling likely secondary to amoxicillin use, recommend avoiding penicillin and amoxicillin in future. Recommend seeing powerhouse engineer in 1 to 2 weeks time upon discharge, coordinate with your PCP office to set up the referral. You will be discharged on tapering dose of steroid, on cetirizine and famotidine; take them as prescribed. You will be also discharged on EpiPen, see below for instructions. Take your medications as prescribed. Get yourself tested for COVID tomorrow at urgent care as you had exposure to COVID patients in your room. Watch out for signs or symptoms of COVID, if worsening respiratory distress, return to emergency immediately. If positive for COVID, maintain self-isolation for 5 days then wear mask around people for next 5 days. Please make sure that you are able to get your medications today by calling your pharmacy before you leave the hospital so that your treatment continuity is not broken. You will be discharged on few days course of steroids/Zyrtec/famotidine/Benadryl. You will also be discharged on EpiPen which you will need to carry with you all the time. In the setting of an allergic reaction, you should use the epinephrine autoinjectorimmediatelyif you: Are having trouble breathing Feel tightness in the throat Feel lightheaded or think you might pass out After using First dose of epi pen, call 911 or emergency immediately. Be aware that a second dose may be needed if symptoms do not appear to be stabilizing or improving, and this may be given 5 to 15 minutes after the first dose. [facility] Attestation I certify that this patient is under my care and that I, or a physicians activity assistant working with me, had a face to-face encounter that meets the [id number] encounter requirements with this patient. The encounter with the patient was in whole, or in part, for the following medical condition, which is the primary reason for home health care (list medical condition): I certify that, based on my findings, the following services are medically necessary home health services: My clinical findings support the need for the above services because: Further, I certify that my clinical findings support that this patient is homebound (i.e. absences from home require considerable and taxing effort and are for medical reasons or jainism services or infrequently or of short duration when for other reasons) because: Certification for Home Health Services: Based on the above findings, I certify that this patient is confined to the home and needs intermittent long term care, physical therapy and/or speech therapy or continues to need occupational therapy. The patient is under my care, and I have initiated the establishment of the plan of care. This patient will be followed by a physician who will periodically review the plan of care. Total Time Total Time Spent Total Time Spent (In Minutes): 45 Discharge Plan Discharge Items Patient Disposition: Home - Self-Care Reason For Visit: ANGIOEDEMA, HTN URGENCY Discharge Diagnosis: Angioedema possibly secondary to amoxicillin use Possible pneumonia Hypertensive urgency Activity: Resume your previous activity Non-emergency contact: Primary Care Provider Call non-emergency contact if: you have any medication questions Follow-up/Referrals: PCP,SANDRA [Primary Care Provider] - Diet: Heart Healthy and Low Sodium (2gm) Addtl Attending Provider Instructions: Follow-up with your primary care physician within a week time and likely you will need labs CBC/CMP/magnesium/phosphorus. For your hypertension, you are started on amlodipine. As discussed at bedside, continue to measure your blood pressure at home twice a day, maintain a log to take to your primary care physician in a week time for further evaluation/management of your blood pressure medications. For your possible pneumonia, you will be discharged on antibiotic to complete the course. Take them as prescribed. For your face/lip swelling likely secondary to amoxicillin use, recommend avoiding penicillin and amoxicillin in future. Recommend seeing powerhouse engineer in 1 to 2 weeks time upon discharge, coordinate with your PCP office to set up the referral. You will be discharged on tapering dose of steroid, on cetirizine and famotidine; take them as prescribed. You will be also discharged on EpiPen, see below for instructions. Take your medications as prescribed. Get yourself tested for COVID tomorrow at urgent care as you had exposure to COVID patients in your room. Watch out for signs or symptoms of COVID, if worsening respiratory distress, return to emergency immediately. If positive for COVID, maintain self-isolation for 5 days then wear mask around people for next 5 days. Please make sure that you are able to get your medications today by calling your pharmacy before you leave the hospital so that your treatment continuity is not broken. You will be discharged on few days course of steroids/Zyrtec/famotidine/Benadryl. You will also be discharged on EpiPen which you will need to carry with you all the time. In the setting of an allergic reaction, you should use the epinephrine autoinjectorimmediatelyif you: Are having trouble breathing Feel tightness in the throat Feel lightheaded or think you might pass out After using First dose of epi pen, call 911 or emergency immediately. Be aware that a second dose may be needed if symptoms do not appear to be stabilizing or improving, and this may be given 5 to 15 minutes after the first dose. Pending Studies at Discharge: Yes Stand-Alone Forms: My [facility], Smoking Cessation Medications and DC Order Prescriptions: New cetirizine 10 mg Tablet 10 mg PO UD Qty: 7 0RF Rx Instructions: Twice a day for 2 days, then once a day for 3 days. diphenhydramine HCl [Allergy Medication] 25 mg capsule 25 mg PO Q6H PRN (Reason: allergic reaction) Qty: 20 0RF amlodipine [Norvasc] 5 mg Tablet 5 mg PO QAM Qty: 30 0RF prednisone 20 mg Tablet 40 mg PO UD Qty: 7 0RF Rx Instructions: 2 tabs daily for 2 days, then 1 tab daily for 3 days, then stop. guaifenesin [Mucinex] 600 mg Tablet Extended Release 12hr 600 mg PO Q12 5 Days Qty: 10 0RF famotidine 20 mg tablet 20 mg PO BID 5 Days Qty: 10 0RF epinephrine [EpiPen 2-Dheeraj] 0.3 mg/0.3 mL auto-injector 0.3 mg IM UD PRN (Reason: anaphylaxis) Qty: 2 0RF levofloxacin 750 mg tablet 750 mg PO DAILY 3 Days Qty: 3 0RF Discontinued amoxicillin-pot clavulanate 875-125 mg tablet 1 tab PO Q12H Rx Instructions: Start Date 07/01/23 - End Date 07/08/23. Pt has taken 5 doses. Super Beet 1 cap PO QAM Discharge Orders: Discharge Order (Routine); Ordered 07/05/23 Ordered By: Collette Kasper Admission Data Admit Date/Time: 07/03/23 18:04 Attending Provider: Collette Kasper Admit Provider: Miranda Allison Primary Care Provider: PCP,NO Other Providers: Miranda Allison
== END 2023-07-05 14:53 | disposition home or self-care (01) | DRG 915 ==
LOC: ED 11:56 → SUATTDRO 18:04 → EDINP 18:04 → 2N 19:52